=== PATIENT | female | born 1970 | race Caucasian/White ===

== ENCOUNTER 2022-02-03 17:00 | Observation (INO) | payer MEDICARE, MEDICAID, SELFPAY ==
[2022-02-03 17:03] VITALS: BP 112/61; PULSE 82; RESP 14; TEMP 36.6; O2SAT 100; BMI 29.2
--- NOTE | 2022-02-03 17:10 | CT_ITS ---
PROCEDURE INFORMATION: Exam: CT Head Without Contrast Exam date and time: 02/03/2022 5:25 PM Age: 51 years old Clinical indication: Altered mental status/memory loss; Confusion or disorientation; Patient HX: Confusion, blood sugar 21; Additional info: AMS TECHNIQUE: Imaging protocol: Computed tomography of the head without contrast. Radiation optimization: All CT scans at this facility use at least one of these dose optimization techniques: automated exposure control; mA and/or kV adjustment per patient size (includes targeted exams where dose is matched to clinical indication); or iterative reconstruction. COMPARISON: No relevant prior studies available. FINDINGS: Limitations: Study is technically limited due to motion artifact blurring images along the superior aspect of the brain. Brain: There is no evidence of intracranial hemorrhage. There are no areas of mass effect, edema or midline shift. Cerebral ventricles: Cortical sulci ventricular system and basilar cisterns are unremarkable for age. Posterior fossa structures including cervicomedullary junction are unremarkable. Paranasal sinuses: Partial opacification of the ethmoid sinus otherwise paranasal sinuses are unremarkable. No fluid levels. Mastoid air cells: Visualized mastoid air cells are well aerated. Bones/joints: Unremarkable. No acute fracture. Soft tissues: Small nodular calcification within the left posterior scalp, longstanding, benign.. IMPRESSION: Technically limited but negative CT examination of the brain. No acute intracranial abnormalities.
--- NOTE | 2022-02-03 17:12 | PC.NURSE ---
1702- bs 21 1703- D50 1 amp given
[2022-02-03 17:17] LABS: POC Glucose,Bedside 212 (70-110)
[2022-02-03 17:20] LABS: Coronavirus 19, PCR Not Detected (NotDetected); Influenza B, PCR Not Detected (NotDetected)
--- NOTE | 2022-02-03 17:20 | PC.NURSE ---
notified ER MD of pt repeat fsbs 212 request ER MD reassess pt. pt alert, able to answer questions.
[2022-02-03 17:45] LABS: Influenza A, PCR Detected (NotDetected)
[2022-02-03 17:49] VITALS: BP 97/65; PULSE 88; RESP 13; O2SAT 100
[2022-02-03 17:50] VITALS: BMI 29.2
--- NOTE | 2022-02-03 17:51 | PC.NURSE ---
contacted lab to draw blood on pt, spoke with tonja
[2022-02-03 18:15] VITALS: BP 119/72; PULSE 71; RESP 17; O2SAT 100
--- NOTE | 2022-02-03 18:26 | PC.NURSE ---
notified assistant housekeeping manager of admission
[2022-02-03 18:36] LABS: Chloride 106 mmol/L (98-107)
[2022-02-03 18:37] LABS: Potassium 3.4 mmoL/L (3.5-5.1); Sodium 137 mmol/L (136-145)
[2022-02-03 18:39] LABS: Alanine Aminotransferase 15 U/L (12-78); Alkaline Phosphatase 69 U/L (38-126); Aspartate Amino Transferase 25 U/L (14-36); Blood Urea Nitrogen 21 mg/dl (7-17); Creatinine Clearance Estimated 102 mL/min (50-200); Estimated Glomerular Filt Rate 76 ml/min (>60); GFR (African American) 92 ML/MIN (>60); Lactic Acid 1.6 mmol/L (0.7-2.1)
[2022-02-03 18:40] LABS: Albumin Level 3.5 g/dl (3.5-5.0); Albumin/Globulin Ratio 1.4 (1.1-1.8); Anion Gap 6.4 mEq/L (5-15); Calcium 8.2 mg/dl (8.4-10.2); Carbon Dioxide 28 mmol/L (22.0-30.0); Globulin 2.5 g/dL (1.3-3.2)
[2022-02-03 18:43] LABS: Basophils % 0.2 % (0.1-2.0); Eosinophils # 0.1 K/mm3 (0.0-0.4); Eosinophils % 1.3 % (0.1-12.0); Hemoglobin 10.6 g/dL (12.2-16.2); Lymphocytes # 0.9 K/mm3 (0.7-4.5); Lymphocytes % 10.3 % (10-50); Mean Corpuscular HGB Conc 33.1 g/dL (31.8-35.4); Mean Corpuscular Hemoglobin 28.1 pg (27.0-31.2); Mean Corpuscular Volume 84.9 fl (81-99); Monocytes # 0.4 K/mm3 (0.1-1.0); Monocytes % 4.3 % (1.7-9.3); Neutrophils # 7.5 K/mm3 (1.8-7.8); Neutrophils % 83.8 % (37.0-80.0); Platelet Count 311 K/mm3 (142-424); Red Blood Count 3.77 M/mm3 (4.20-5.40); Red Cell Distribution Width 14.3 % (11.5-17.5); White Blood Count 8.9 K/mm3 (4.8-10.8)
--- NOTE | 2022-02-03 18:44 | PC.NURSE ---
Addendum entered by Tosin Escobar RN 02/03/22 18:45: pt alert and talking Original Note: giving pt orange juice and pudding
[2022-02-03 18:45] LABS: Bilirubin,Total < 0.1 mg/dl (0.2-1.3); Glucose 40 mg/dl (74-100)
--- NOTE | 2022-02-03 18:50 | PC.NURSE ---
notified dr. connors of critical glucose, pt is alert, eating pudding and drinking orange juice at this time. dr. connors states placing orders for ivf
--- NOTE | 2022-02-03 19:02 | PC.NURSE ---
medication list obtained from david at [facility] pt gets fsbs at breakfast, supper and bedtime notified dr. connors able to obtain pt medication list
[2022-02-03 19:04] LABS: Troponin I < 0.01 ng/ml (0.00-0.034)
[2022-02-03 19:07] VITALS: BP 119/71; PULSE 71; RESP 18; TEMP 36.6; O2SAT 98
[2022-02-03 19:08] VITALS: BMI 25.8
--- NOTE | 2022-02-03 19:15 | PC.NURSE ---
repeat fsbs 35, pt alert, oriented able to answer all questions. Pt has drank 2 8 oz cups of orange juice, 1 cup of pudding, is now eating chicken salad and peaches
--- NOTE | 2022-02-03 19:30 | HMH.EDGENADL ---
Discharge Plan Disposition Patient Disposition: Admitted as Observation Clinical Impressions Clinical Impression: Influenza A, Hypoglycemia Discharge ED Provider: Antionette Santana General Adult HPI General Chief complaint: Altered Mental Status Stated complaint: altered mental status Time Seen by Provider: 02/03/22 17:04 Mode of Arrival: EMS Source of Information: EMS Limitations: Altered Mental Status Description of Symptoms (Recalled from ER Triage Doc. by RN): pt arrived altered, no able to answer any questions, will respond to painful stimuli only. per [facility] pt fsbs was 48, per ems fsbs 85 and pt hypotensive per ems. fsbs upon arrival to ED 21 History of Present Illness HPI narrative: Miss dorantes is a 51 yo female w/ PMH for DM (believe insulin dependent per EMS) presenting to the emergency department for AMS. LKN unknown. Patient became acutely altered per staff at senior living. Patient was in usual state of health prior. EMS was called to scene and reports that glucose was 85. However on arrival glucose is 21. Patient will respond to painful stimuli in all 4 extremities. Pupils are equal and reactive. No notable trauma or fall per senior living, however limited supervision there. Following glucose, patient is alert and reporting she feels her usual self. No focal neurological deficits. Denies any pain or recent illness prior. MD complaint: AMS Related Data Home Medications Medication Instructions Recorded Confirmed ascorbic acid (vitamin C) 500 mg 500 mg PO DAILY Supplement 02/03/22 02/03/22 tablet (Vitamin C) atorvastatin 10 mg tablet 10 mg PO HS Cholesterol 02/03/22 02/04/22 famotidine 20 mg tablet 20 mg PO BID GERD 02/03/22 02/03/22 metformin 850 mg tablet 850 mg PO BID Diabetes 02/03/22 02/03/22 quetiapine 50 mg tablet (Seroquel) 50 mg PO HS mood 02/03/22 02/04/22 risperidone 4 mg tablet 4 mg PO DAILY mood 02/03/22 02/03/22 sitagliptin phosphate 100 mg 100 mg PO DAILY Diabetes 02/03/22 02/03/22 tablet (Januvia) benazepril 10 mg tablet 10 mg PO DAILY High blood pressure 02/04/22 02/04/22 docusate calcium 240 mg capsule 240 mg PO DAILY constipation 02/04/22 02/04/22 glimepiride 1 mg tablet 1 mg PO BID Diabetes 02/04/22 02/04/22 ibuprofen 400 mg tablet 400 mg PO Q6H PRN pain/fever 02/04/22 02/04/22 Allergies Allergy/AdvReac Type Severity Reaction Status Date / Time No Known Allergies Allergy Verified 02/03/22 18:10 [facility] Disclaimer: The information contained in this section may have been updated after the patient was seen, as this information can be updated by other users. Medical History Anxiety Depression Diabetes Hyperlipidemia Mood disorder Family History Other Diabetes Social History Smoking Status: Smoker, status unknown alcohol intake: never current occupational status: unemployed Travel in the last 8 weeks: None ROS Obtained: Yes All systems reviewed & no additional complaints except as documented ROS obtained once patient more alert Physical Exam General General appearance: alert and in no apparent distress Head Head exam: atraumatic and normal inspection Eye Eye exam: Present normal appearance and EOMI ENT ENT exam: Present normal exam and mucous membranes moist Neck Neck exam: Present normal inspection and full ROM Chest Chest inspection: Present normal inspection and symmetric chest wall rise Respiratory Respiratory exam: Present normal lung sounds bilaterally Cardiovascular Cardiovascular exam: Present regular rate and normal heart sounds Abdominal Exam Abdominal exam: Present soft and normal bowel sounds Extremities Exam Extremities exam: Present normal inspection and edema Back Exam Back exam: Present normal inspection and full ROM Neurological Exam Neurological exam: Present alert, oriented X3 and
--- NOTE | 2022-02-03 19:40 | PC.NURSE ---
report called to kenna haji rn on second floor, states she will send staff down to transport pt
--- NOTE | 2022-02-03 19:45 | PC.NURSE ---
notified ezekiel pierson of fsbs 32 on repeat at this time states she will place order for amp of d50
--- NOTE | 2022-02-03 19:51 | PC.NURSE ---
notified kenna yan on second floor of repeat fsbs and 1 amp of d50 given per ezekiel pierson
[2022-02-03 20:00] VITALS: BP 110/68; PULSE 80; PULSE 88; RESP 17; TEMP 36.9; O2SAT 100
--- NOTE | 2022-02-03 20:13 | EXP.HP ---
History of Present Illness *Admission Date: 02/03/22 *Reason for visit:: Change in mental status, hypoglycemia *History of present illness: Ms. Blanca is a 51-year-old female with a past medical history that is positive for DM, Hyperlipidemia, Anxiety/Depression and mood disorder. She presents to [facility] from an assisted living facility due to change in mental status and difficulty arousing. Per chart review the patient was found to have a blood glucose in the 40 range at the assisted facility, when EMS arrived the blood glucose was in the 20 range. She has been given Amps of D50 x 2 prior to admission and placed on a D51/2NS drip. Prior to coming to the floor blood glucose was still in the 40 range. The patient is now awake and answering questioning appropriately and is neurologically intake. She reports a couple days prior to the event she started not feeling well, had decreased oral intake, body aches and cough. She reports that she continued to take her diabetic medication while not eating well. The patient will be admitted with initial impression: Hypoglycemia and Influenza A. She will be on close Accu Check monitoring, have D50 if needed push prn, and continued on D51/2NS drip. Her diabetic medications will be held at this time due to continued significant hypoglycemia. The plan of care was discussed with the patient in length and detail at bedside on her admission. She verbalized understanding and agreement with the plan of care. [facility] Disclaimer: The information contained in this section may have been updated after the patient was seen, as this information can be updated by other users. Medical History Anxiety Depression Diabetes Hyperlipidemia Mood disorder Family History Diabetes Social History (Updated 02/04/22 @ 00:39 by Lizzeth Layne RN) Smoking Status: Smoker, status unknown alcohol intake: never current occupational status: unemployed Travel in the last 8 weeks: None Review of Systems Review of Systems Review of systems:: pertinent systems reviewed and negative unless documented below Constitutional Constitutional: Reports body ache(s) and Reports chills Eyes Eyes: Reports system reviewed and no additional complaints, except as documented ENT Ears, Nose, Mouth, and Throat: Reports nasal congestion and Reports post nasal drip *Cardiovascular Cardiovascular: Reports system reviewed and no additional complaints, except as documented *Respiratory Respiratory: Reports cough *Gastrointestinal Gastrointestinal: Reports system reviewed and no additional complaints, except as documented *Genitourinary Genitourinary: Reports system reviewed and no additional complaints, except as documented *Musculoskeletal Musculoskeletal: Reports system reviewed and no additional complaints, except as documented Integumentary/Breasts Skin/Breast: Reports system reviewed and no additional complaints, except as documented *Neurologic Neurologic: Reports system reviewed and no additional complaints, except as documented Psychiatric Psychiatric: Reports system reviewed and no additional complaints, except as documented Endocrine Endocrine: Reports system reviewed and no additional complaints, except as documented Hematologic/Lymphatic Hematologic/Lymphatic: Reports system reviewed and no additional complaints, except as documented Allergic/Immunologic Allergic/Immunologic: Reports system reviewed and no additional complaints, except as documented Meds Home Medications and Allergies Home Medications Medication Instructions Recorded Confirmed Type ascorbic acid (vitamin C) 500 mg 500 mg PO DAILY Supplement 02/03/22 02/03/22 History tablet (Vitamin C) atorvastatin 10 mg tablet 10 mg PO DAILY Cholesterol 02/03/22 02/03/22 History benztropine 2 mg tablet 10 mg PO DAILY . 02/03/22
[2022-02-03 20:41] LABS: POC Glucose,Bedside 89 (70-110)
[2022-02-03 20:59] LABS: Troponin I < 0.01 ng/ml (0.00-0.034)
--- NOTE | 2022-02-03 22:43 | PC.NURSE ---
221 PT'S FINGER STICK WAS 45. FINGER STICK WAS REPEATED AT 221 AND RESULTED 39. JERED WAS NOTIFIED AND SAW PT. NEW ORDER OF D10 IN WATER AT 25ML/HR AND PUSH AN AMP OF D50. STAT GLUCOSE ORDERED AT DRAWN AT 2244. PT IS CURRENTLY ASYMPTOMATIC.
--- NOTE | 2022-02-03 22:49 | PC.NURSE ---
[facility] @[phone]
[2022-02-03 22:56] LABS: POC Glucose,Bedside 116 (70-110)
[2022-02-03 23:15] LABS: Troponin I < 0.01 ng/ml (0.00-0.034)
[2022-02-03 23:24] LABS: Glucose,Random 130 mg/dL (74-100)
[2022-02-03 23:46] VITALS: BP 91/60; PULSE 75; RESP 18; TEMP 37.1; O2SAT 96
--- NOTE | 2022-02-03 23:47 | PC.NURSE ---
PT HAD AN EPISODE OF VOMITING AT THIS TIME.
[2022-02-04] VITALS (8 sets, daily range): BP systolic 90–104; BP diastolic 47–64; PULSE 62–90; RESP 14–18; TEMP 36.7–37.4; O2SAT 94–100; BMI 26.3
[2022-02-04 00:09] LABS: POC Glucose,Bedside 68 (70-110)
--- NOTE | 2022-02-04 00:12 | PC.NURSE ---
AT 0002 PT'S FSBS WAS 68 NOTIFIED NURSE PRACTITIONER. SUPERVISOR [employer] MAN[employer]FA[employer]URING STATED TO GIVE PT ANOTHER AMP OF D50 AND CONTINUE WITH Q2HR FINGER STICKS. SUPERVISOR [employer]URING ALSO WANTS TO BE NOTIFIED OF EACH SUGAR RESULT.
--- NOTE | 2022-02-04 00:39 | PC.NURSE ---
PAS TMEDICAL AND FAMILY HISTORY COMPLETED AT THIS TIME. PT IS A POOR HISTORIAN.
[2022-02-04 02:40] LABS: POC Glucose,Bedside 205 (70-110)
[2022-02-04 03:54] LABS: POC Glucose,Bedside 126 (70-110)
--- NOTE | 2022-02-04 05:51 | PC.NURSE ---
PT IS CURRENTLY RESTING WELL. MOST OF SHIFT PT'S FSBS'S HAVE BEEN UNSTABLE. FINGER STICKS HAVE RANGED FROM 36-205 THIS SHIFT. PT WAS ADMITTED FOR FLU AND HYPOGLYCEMIA. HER 0600 FSBS WAS 114 AND FOR THE LAST 2-3 HOURS HER BLOOD GLUCOSE LEVELS HAVE BEEN STABLE. SINCE ARRIVING TO THE FLOOR THE ENVIRONMENTAL ENGINEERING MANAGER AND THIS RN HAVE BEEN CLOSELY MONITORING HER GLUCOSE AND FLUIDS. SINCE ARRIVING TO THE FLOOR THIS RN HAS GIVEN THE PT 3 AMPS OF D50 DUE TO FSBS LESS THAN 50 AND SYMPTOMATIC. PT HAS BEEN GIVEN REGULAR SODA AND PUDDING TO HELP MAINTAIN HER BLOOD GLUCOSE. HER VITALS SIGNS ARE STABLE. FSBS REMAIN Q2HR CHECKS. CALL LOYD WITHIN REACH. BED ALARM IN PLACE FOR PT SAFETY.
[2022-02-04 05:53] LABS: POC Glucose,Bedside 114 (70-110)
[2022-02-04 07:27] LABS: Basophils % 0.4 % (0.1-2.0); Eosinophils # 0.2 K/mm3 (0.0-0.4); Eosinophils % 2.2 % (0.1-12.0); Hematocrit 30.8 % (37.0-47.0); Lymphocytes # 1.3 K/mm3 (0.7-4.5); Lymphocytes % 18.3 % (10-50); Mean Corpuscular HGB Conc 32.6 g/dL (31.8-35.4); Mean Corpuscular Hemoglobin 27.9 pg (27.0-31.2); Mean Corpuscular Volume 85.4 fl (81-99); Mean Platelet Volume 9.2 fl (7.4-10.4); Monocytes # 0.4 K/mm3 (0.1-1.0); Monocytes % 5.7 % (1.7-9.3); Neutrophils # 5.3 K/mm3 (1.8-7.8); Neutrophils % 73.4 % (37.0-80.0); Platelet Count 309 K/mm3 (142-424); Red Cell Distribution Width 14.5 % (11.5-17.5); White Blood Count 7.2 K/mm3 (4.8-10.8)
[2022-02-04 07:33] LABS: Chloride 109 mmol/L (98-107); Potassium 3.5 mmoL/L (3.5-5.1); Sodium 136 mmol/L (136-145)
[2022-02-04 07:35] LABS: Blood Urea Nitrogen 15 mg/dl (7-17); Creatinine Clearance Estimated 93 mL/min (50-200); Estimated Glomerular Filt Rate 76 ml/min (>60); GFR (African American) 92 ML/MIN (>60)
[2022-02-04 07:36] LABS: Alanine Aminotransferase 12 U/L (12-78); Albumin/Globulin Ratio 1.3 (1.1-1.8); Alkaline Phosphatase 67 U/L (38-126); Anion Gap 4.5 mEq/L (5-15); Aspartate Amino Transferase 20 U/L (14-36); Calcium 7.9 mg/dl (8.4-10.2); Carbon Dioxide 26 mmol/L (22.0-30.0); Globulin 2.4 g/dL (1.3-3.2); Glucose 89 mg/dl (74-100); Magnesium 1.5 mg/dl (1.6-2.3); Total Protein,Serum 5.4 g/dl (6.3-8.2)
[2022-02-04 07:41] LABS: Bilirubin,Total < 0.1 mg/dl (0.2-1.3)
[2022-02-04 08:01] LABS: Hemoglobin A1C 5.2 % (4.0-6.0)
[2022-02-04 08:12] LABS: POC Glucose,Bedside 78 (70-110)
--- NOTE | 2022-02-04 09:59 | HMH.OTEV ---
OT Inpatient Evaluation Rehab OT IP Evaluation Start: 02/04/22 08:25 Freq: ONCE Status: Complete Protocol: [facility]22 [facility] (Rec: 02/04/22 09:59 [facility] [id number]) Rehab OT IP Assessment Subjective History Pt oriented x 4 on arrival. Pt agreeable to engage in therapy evaluation. Pt was admitted via ED on 02/03/22 due to flu, Change in mental status, and hypoglycemia. Prior to being in the hospital , pt was living at [facility]. Pt claims she was independent with dressing, showering, and feeding. Pt was dependent upon staff to complete all IADLs. Pt did not use a walker or cane during ambulation. Pt has a past medical history of: Anxiety Depression Diabetes Hyperlipidemia Mood disorder Subjective I need you to call my cousin Denise. Objective Patient Orientation Person,Place,Birthday,Year Upper Extremity Gross ROM WFL Bed Mobility bed mobility-scooting,bed mobility - supine/sit,bed mobility - rolling Assist Level Independent Transfer Training Sit/Stand Transfer Assist Level Supervision/Stand by Chair Transfer Ability Supervision/Stand by Chair Transfer Technique Sit to/from Ambulatory Chair Transfer Assistive Devices None Lower Body Dressing Ability Standby Assistance Performing Toilet Hygiene Ability Standby Assistance Overall Commode/Toilet Transfer Ability Standby Assistance Commode/Toilet Transfer Technique Sit to/from Ambulatory Rehab OT IP prob,goals,plan Problems Date of Evaluation: 02/04/22 Rehab Potential Rehab Potential Innapropriate for Skilled Therapy Discharge Plan OT Discharge Plan Pt appears to be at her baseline for ADL independence and functional transfers. Pt can return to [facility] once she is medically stable per physician. Eval Complexity Eval Charge Codes 90981 - Low
--- NOTE | 2022-02-04 10:05 | HMH.PTEV ---
Physical Therapy Evaluation Rehab PT IP Evaluation Start: 02/04/22 08:24 Freq: ONCE Status: Active Protocol: Document 02/04/22 10:01 [facility] (Rec: 02/04/22 10:05 [facility] [id number]) Subjective/History History History 51 yowf adm to [facility] with general weakness and flu+. She reports she [facility] in a [facility] and she is generally independent with all mobility. Subjective Subjective Currently no c/o this am, feels stronger, wants to return to fci. Rehab PT IP Eval Objective Appearance Patient Behavior Appropriate Patient Orientation Person,Place,Time Difficulty following instructions none Speech Pattern Clear Ambulation Patient Able to Ambulate Yes Ambulation Observation IP General Gait Pattern Observation No Deviations/Normal Ambulation Distance (feet) 30 Ambulation Assistive Device None Ambulation Ability Supervision/Stand by Balance Ability to Arise Able, uses arms to help Sitting Balance Steady, safe Standing Balance Steady, wide stance Dynamic Sitting Balance Ability Normal Dynamic Standing Balance Ability Good Transfers Bed Transfer Ability Supervision/Stand by Chair Transfer Ability Supervision/Stand by Sit to Stand Bed Transfer Ability Supervision/Stand by Sit to Stand Chair Transfer Ability Supervision/Stand by ROM All Extremities PT ROM Status WFL MMT All Extremities PT MMT WFL Rehab PT IP prob,goals,plan Problems Date of Evaluation: 02/04/22 Discharge Plan PT Discharge Plan Pt currently appears to be at baseline for all mobility, no current inpatient therapy needs. She is appropriate to return to f[facility] once medically stable. G -code Required No Eval Complexity Eval Charge Codes 40178 - Moderate Complexity PHYSICIAN CERTIFICATION: I certify the specified therapy services for Lissett Blanca are required, authorized, and reviewed every 30 days.
--- NOTE | 2022-02-04 10:10 | EXP.ACUTE.PN ---
Subjective *Date: 02/04/22 *Time: 10:10 Interval history: Overnight Ms. Blanca required oxygen briefly due to some mild hypoxia. Noted to have continued drop in blood sugar necessitating initiation of dextrose infusion. At this time holding her diabetes medications. On rounds this morning she mentions she was recently in the hospital in [place] for low blood sugar. Review of medications show that her glimepiride has been held on admission to [facility]. sales record clerk assisting with obtaining records from previous hospitalization. This morning she denies chest pain, nausea, vomiting, shortness of breath, diarrhea. Very pleasant on interview. Tolerated breakfast without incident. Medical Exam Vital signs and Labs for Last 24 Hours: Vital Signs Temp Pulse Pulse Resp BP BP Pulse Ox 02/04/22 09:26 98 02/04/22 08:00 98.5 F 87 18 90/58 L 99 02/04/22 04:00 90 02/04/22 03:50 99.3 F 81 18 94/64 L 94 L 02/04/22 00:00 80 02/03/22 20:00 80 02/03/22 23:46 98.7 F 75 18 91/60 L 96 02/03/22 20:00 98.5 F 88 17 110/68 100 02/03/22 19:07 98 F 71 18 119/71 02/03/22 18:15 71 17 119/72 100 02/03/22 17:49 88 13 97/65 L 100 02/03/22 17:03 97.9 F 82 14 112/61 100 Intake and Output 02/03/22 02/04/22 02/04/22 23:59 07:59 15:59 Intake Total 1044 / 1284 240 / 1284 Output Total 0 / 0 0 / 0 0 / 0 Balance 0 / 0 1044 / 1284 240 / 1284 Intake: Intake, Oral Amount 240 / 240 Intake, Total IV Amount 1044 / 1044 Dextrose 5 % and 0.9 % NaCl 1, 1044 / 1044 000 ml @ 100 mls/hr IV .Q10H MARLEEN Rx#:[id number] Output: Output, Urine Amount 0 / 0 0 / 0 0 / 0 Other: Number of Unmeasured Voids 1 1 Weight 68.634 kg 70.023 kg Patient Weight 02/04/22 23:59 Weight 70.023 kg Laboratory Results - last 24 hr 12/04/22 17:07: SARS-CoV-2 (PCR) Not detected, Influenza A Untype (PCR) Detected A, Influenza Type B (PCR) Not detected 02/03/22 17:09: POC Glucose 212 H 02/03/22 18:10: WBC 8.9, RBC 3.77 L, Hgb 10.6 L, Hct 32.0 L, MCV 84.9, MCH 28.1, MCHC 33.1, RDW 14.3, Plt Count 311, MPV 9.0, Neut % (Auto) 83.8 H, Lymph % (Auto) 10.3, Granite % (Auto) 4.3, Eos % (Auto) 1.3, Baso % (Auto) 0.2, Neut # (Auto) 7.5, Lymph # (Auto) 0.9, Granite # (Auto) 0.4, Eos # (Auto) 0.1, Baso # (Auto) 0.0 02/03/22 18:10: Sodium 137, Potassium 3.4 L, Chloride 106, Carbon Dioxide 28, Anion Gap 6.4, BUN 21 H, Creatinine 0.80, Estimated Creat Clear 102, Estimated GFR 76, Est GFR ( Amer) 92, Glucose 40 L, Calcium 8.2 L, Total Bilirubin < 0.1 L, AST 25, ALT 15, Alkaline Phosphatase 69, Troponin I < 0.01, Total Protein 6.0 L, Albumin 3.5, Globulin 2.5, Albumin/Globulin Ratio 1.4 02/03/22 18:10: Lactate 1.6 02/03/22 20:21: Troponin I < 0.01 02/03/22 20:32: POC Glucose 89 02/03/22 22:47: Troponin I < 0.01 02/03/22 22:47: Random Glucose 130 H 02/03/22 22:48: POC Glucose 116 H 02/04/22 00:01: POC Glucose 68 L 02/04/22 02:33: POC Glucose 205 H 02/04/22 03:47: POC Glucose 126 H 02/04/22 05:46: POC Glucose 114 H 02/04/22 06:50: WBC 7.2, RBC 3.60 L, Hgb 10.0 L, Hct 30.8 L, MCV 85.4, MCH 27.9, MCHC 32.6, RDW 14.5, Plt Count 309, MPV 9.2, Neut % (Auto) 73.4, Lymph % (Auto) 18.3, Granite % (Auto) 5.7, Eos % (Auto) 2.2, Baso % (Auto) 0.4, Neut # (Auto) 5.3, Lymph # (Auto) 1.3, Granite # (Auto) 0.4, Eos # (Auto) 0.2, Baso # (Auto) 0.0 02/04/22 06:50: Sodium 136, Potassium 3.5, Chloride 109 H, Carbon Dioxide 26, Anion Gap 4.5 L, BUN 15 D, Creatinine 0.80, Estimated Creat Clear 93, Estimated GFR 76, Est GFR ( Amer) 92, Glucose 89 D, Calcium 7.9 L, Magnesium 1.5 L, Total Bilirubin < 0.1 L, AST 20, ALT 12, Alkaline Phosphatase 67, Total Protein 5.4 L, Albumin 3.0 L D, Globulin 2.4, Albumin/Globulin Ratio 1.3 02/04/22 06:50: Hemoglobin A1c 5.2 02/04/22 08:03: POC Glucose 78 I & O for Labs for Last 24 Hours: Intake & Output 02/01/22 02/02/22 02/03/22 02/04/22 23:5
--- NOTE | 2022-02-04 10:11 | SW/DCPLANNER ---
Addendum entered by Tanisha Villarreal RN 02/05/22 15:56: Dina from [facility] states that patient is good to come back there. They will send someone to pick her up today. Original Note: This patient currently resides at [facility]. I have updated Dina arroyo/ [facility]: the plan is for this patient to return possibly tomorrow.
[2022-02-04 10:29] LABS: POC Glucose,Bedside 96 (70-110)
[2022-02-04 12:26] LABS: POC Glucose,Bedside 106 (70-110)
[2022-02-04 14:25] LABS: POC Glucose,Bedside 122 (70-110)
[2022-02-04 16:34] LABS: POC Glucose,Bedside 147 (70-110)
--- NOTE | 2022-02-04 16:36 | PC.NURSE ---
PT IS RESTING IN BED. ALERT AND ORIENTED X2. PT CONTINUOUSLY ASK WHEN SHE IS GOING TO GET TO GO BACK HOME. BLOOD SUGARS HAVE GRADUALLY IMPROVED T/O THE DAY HOWEVER PT HAS NEEDED ENCOURAGEMENT TO EAT AND DRINK ON AND OFF T/O THE SHIFT. LUNG SOUNDS CLEAR. ABDOMEN SOFT/NON TENDER WITH ACTIVE BOWEL SOUNDS. AMBULATES TO THE BATHROOM. WILL CONTINUE TO MONITOR.
[2022-02-04 23:40] LABS: POC Glucose,Bedside 145 (70-110)
[2022-02-05] VITALS: BP 106/66; PULSE 80; PULSE 81; RESP 16; TEMP 37.4; O2SAT 96
[2022-02-05 03:36] VITALS: BP 109/69; PULSE 89; RESP 18; TEMP 37.3; O2SAT 98
[2022-02-05 04:00] VITALS: PULSE 80
[2022-02-05 04:18] LABS: POC Glucose,Bedside 158 (70-110)
[2022-02-05 05:05] VITALS: BMI 26.8
--- NOTE | 2022-02-05 05:46 | PC.NURSE ---
Pt a/ox2. Pt has not voiced any c/o to staff. Blood sugars have been over >100. Call light within reach.
[2022-02-05 06:52] LABS: POC Glucose,Bedside 132 (70-110)
[2022-02-05 07:35] LABS: Chloride 117 mmol/L (98-107)
[2022-02-05 07:36] LABS: Potassium 5.2 mmoL/L (3.5-5.1); Sodium 138 mmol/L (136-145)
[2022-02-05 07:38] LABS: Blood Urea Nitrogen 9 mg/dl (7-17); Creatinine Clearance Estimated 126 mL/min (50-200); Estimated Glomerular Filt Rate 106 ml/min (>60); GFR (African American) 128 ML/MIN (>60)
[2022-02-05 07:39] LABS: Anion Gap 8.2 mEq/L (5-15); Calcium 8.6 mg/dl (8.4-10.2); Carbon Dioxide 18 mmol/L (22.0-30.0); Glucose 143 mg/dl (74-100)
[2022-02-05 08:00] VITALS: BP 138/65; PULSE 79; RESP 16; TEMP 36.7; O2SAT 100; O2SAT 98
[2022-02-05 09:33] LABS: Basophils % 0.4 % (0.1-2.0); Eosinophils # 0.2 K/mm3 (0.0-0.4); Eosinophils % 3.6 % (0.1-12.0); Hematocrit 32.9 % (37.0-47.0); Hemoglobin 10.8 g/dL (12.2-16.2); Lymphocytes # 1.1 K/mm3 (0.7-4.5); Lymphocytes % 17.3 % (10-50); Mean Corpuscular HGB Conc 32.9 g/dL (31.8-35.4); Mean Corpuscular Hemoglobin 27.9 pg (27.0-31.2); Mean Corpuscular Volume 84.8 fl (81-99); Mean Platelet Volume 9.4 fl (7.4-10.4); Monocytes # 0.4 K/mm3 (0.1-1.0); Monocytes % 6.4 % (1.7-9.3); Neutrophils # 4.8 K/mm3 (1.8-7.8); Neutrophils % 72.3 % (37.0-80.0); Platelet Count 304 K/mm3 (142-424); Red Blood Count 3.87 M/mm3 (4.20-5.40); Red Cell Distribution Width 14.5 % (11.5-17.5); White Blood Count 6.6 K/mm3 (4.8-10.8)
[2022-02-05 11:41] VITALS: BP 121/66; PULSE 67; RESP 16; TEMP 36.7; O2SAT 98
[2022-02-05 12:06] LABS: POC Glucose,Bedside 273 (70-110)
[2022-02-05 12:59] LABS: C-Peptide 5.9 ng/mL (1.1-4.4); Insulin Level Total 38.3 uIU/mL (2.6-24.9)
[2022-02-05 13:38] LABS: Chloride 114 mmol/L (98-107); Potassium 4.9 mmoL/L (3.5-5.1); Sodium 136 mmol/L (136-145)
[2022-02-05 13:41] LABS: Anion Gap 9.9 mEq/L (5-15); Blood Urea Nitrogen 8 mg/dl (7-17); Calcium 8.8 mg/dl (8.4-10.2); Carbon Dioxide 17 mmol/L (22.0-30.0); Creatinine Clearance Estimated 126 mL/min (50-200); Estimated Glomerular Filt Rate 106 ml/min (>60); GFR (African American) 128 ML/MIN (>60); Glucose 227 mg/dl (74-100)
--- NOTE | 2022-02-05 15:00 | EXP.DC.SUM ---
General Admission date:: 02/03/22 Discharge date: 02/05/22 HPI HPI HPI: Ms. Blanca is a 51-year-old female with a past medical history that is positive for DM, Hyperlipidemia, Anxiety/Depression and mood disorder. She presents to [facility] from an assisted living facility due to change in mental status and difficulty arousing. Per chart review the patient was found to have a blood glucose in the 40 range at the assisted facility, when EMS arrived the blood glucose was in the 20 range. She has been given Amps of D50 x 2 prior to admission and placed on a D51/2NS drip. Prior to coming to the floor blood glucose was still in the 40 range. The patient is now awake and answering questioning appropriately and is neurologically intake. She reports a couple days prior to the event she started not feeling well, had decreased oral intake, body aches and cough. She reports that she continued to take her diabetic medication while not eating well. The patient will be admitted with initial impression: Hypoglycemia and Influenza A. She will be on close Accu Check monitoring, have D50 if needed push prn, and continued on D51/2NS drip. Her diabetic medications will be held at this time due to continued significant hypoglycemia. The plan of care was discussed with the patient in length and detail at bedside on her admission. She verbalized understanding and agreement with the plan of care. Hospital Course Hospital Course Hospital Course: Patient was admitted for change in mental status, found to have significant hypoglycemia and hypoglycemia and influenza A. Found to have glucose of 20 in the field, brought into ER, given 2 amps of D50 in ER and placed on continuous infusion with continued hypoglycemia, DM meds held. Pt started on tamiflu for influenza. ?required oxygen briefly due to some mild hypoxia. insulin and C-peptide levels ordered, currently pending. Potassium on day of discharge was 5.2, given lasix with repeat 4.9. Patient discharged to facility. Will need follow up BMP on discharge, and adjustment of DM medications. Exam Data for Last 24 hours Vital signs and Labs for Last 24 Hours: Temp Pulse Resp BP Pulse Ox 98.0 F 67 16 121/66 98 02/05/22 11:41 02/05/22 11:41 02/05/22 11:41 02/05/22 11:41 02/05/22 11:41 Laboratory Results - last 24 hr 02/04/22 06:50: Total Insulin 38.3 H, C-Peptide 5.9 H 02/04/22 16:27: POC Glucose 147 H 02/04/22 23:28: POC Glucose 145 H 02/05/22 04:10: POC Glucose 158 H 02/05/22 06:44: POC Glucose 132 H 02/05/22 07:10: Sodium 138, Potassium 5.2 H D, Chloride 117 H, Carbon Dioxide 18 L, Anion Gap 8.2, BUN 9 D, Creatinine 0.60 D, Estimated Creat Clear 126, Estimated GFR 106, Est GFR ( Amer) 128 D, Glucose 143 H, Calcium 8.6 02/05/22 09:25: WBC 6.6, RBC 3.87 L, Hgb 10.8 L, Hct 32.9 L, MCV 84.8, MCH 27.9, MCHC 32.9, RDW 14.5, Plt Count 304, MPV 9.4, Neut % (Auto) 72.3, Lymph % (Auto) 17.3, [place] % (Auto) 6.4, Eos % (Auto) 3.6, Baso % (Auto) 0.4, Neut # (Auto) 4.8, Lymph # (Auto) 1.1, [place] # (Auto) 0.4, Eos # (Auto) 0.2, Baso # (Auto) 0.0 02/05/22 11:09: POC Glucose 273 H 02/05/22 13:05: Sodium 136, Potassium 4.9, Chloride 114 H, Carbon Dioxide 17 L, Anion Gap 9.9, BUN 8, Creatinine 0.60, Estimated Creat Clear 126, Estimated GFR 106, Est GFR ( Amer) 128, Glucose 227 H D, Calcium 8.8 I & O for Last 24 hours: Intake & Output 02/02/22 02/03/22 02/04/22 02/05/22 23:59 23:59 23:59 23:59 Intake Total 306 / 0 2327 Output Total 0 / 0 0 / 0 0 / 0 Balance 0 / 0 3060 / 4209 2327 / 2327 Weight 68.634 kg 70.023 kg 71.214 kg Constitutional Constitutional: no acute distress, disheveled and cooperative *Routine HEENT Exam Head: Present normocephalic Eye: Present EOMI ENT: Present mucous membranes moist *Routine Neck Exam Neck: Present supple and full ROM *Routine Respiratory Exam Respiratory: Present accessory muscle use and CTA bilaterally *Routi
--- NOTE | 2022-02-06 11:08 | CARE MANAGER ---
Spoke with employee at [employer] who states patient is doing very well and her blood sugar has remained stable. She denies any questions or concerns. KRISH Gardner
== END 2022-02-05 15:26 | disposition home or self-care (01) ==
LOC: ER 18:55 → 2ND 20:08
PROVIDERS: Nurse Practitioner Family; Admitting Provider Internal Medicine Adolescent Medicine; Emergency Provider Student in an Organized Health Care Education/Training Program; PCP Emergency Medicine; Visit Provider Student in an Organized Health Care Education/Training Program
DX: J10.1 Influenza due to other identified influenza virus with other respiratory manifestations (principal); F17.210 Nicotine dependence, cigarettes, uncomplicated; F39 Unspecified mood [affective] disorder; E78.5 Hyperlipidemia, unspecified; I10 Essential (primary) hypertension; E11.649 Type 2 diabetes mellitus with hypoglycemia without coma; Z79.84 Long term (current) use of oral hypoglycemic drugs; Z79.899 Other long term (current) drug therapy; Z20.822 Contact with and (suspected) exposure to COVID-19
CPT/HCPCS: G0378; 36415; 70450; 80048; 80053; 82947; 82962; 83036; 83525; 83605; 83735; 84484; 84681; 85025; 97162; 97165; 99285; C9803; J2405; U0003; U0005